=== PATIENT | female | born 1960 | race Caucasian/White ===

== ENCOUNTER 2016-04-22 08:49 | Emergency (ER) | payer BC, OTHER ==
[2016-04-22] MEDS ORDERED: Naproxen TAB* 250 MG PO ONE (09:21)
--- NOTE | 2016-04-22 09:26 | UC ---
Throat Pain/Nasal Dominic HPI - HPI Summary HPI Summary: patient has had sore thraot for 4 days, denies fever, hard to swallow - History of Current Complaint Chief Complaint: UCRespiratory Stated Complaint: THROAT COMPLAINT Time Seen by Provider: 04/22/16 09:23 Hx Obtained From: Patient Hx Last Menstrual Period: one month ?: No Onset/Duration: Sudden Onset, Lasting Days Severity: Severe Pain Intensity: 8 Pain Scale Used: 0-10 Numeric Cough: Nonproductive Associated Signs & Symptoms: Positive: Dysphagia, Hoarseness - Epiglottits Risk Factors Epiglottis Risk Factors: Negative - Allergies/Home Medications Allergies/Adverse Reactions: Allergies Allergy/AdvReac Type Severity Reaction Status Date / Time Amoxicillin [From Augmentin] AdvReac GI Upset Verified 04/22/16 09:19 Clavulanic Acid AdvReac GI Upset Verified 04/22/16 09:19 [From Augmentin] PMH/Surg Hx/FS Hx/Imm Hx Previously Healthy: Yes Endocrine History Of: Reports: Diabetes Cardiovascular History Of: Reports: Hypertension Cancer History Of: Denies: Breast Cancer - Surgical History Surgical History: Yes Surgery Procedure, Year, and Place: x2. uterine ablation - Family History Known Family History: Positive: Cardiac Disease - Social History Alcohol Use: Rare Substance Use Type: None Smoking Status (MU): Never Smoked Tobacco Have You Smoked in the Last Year: No - Immunization History Most Recent Influenza Vaccination: none Most Recent Tetanus Shot: unk Most Recent Pneumonia Vaccination: none Review of Systems Constitutional: Negative Skin: Negative Eyes: Negative ENT: Sore Throat Respiratory: Negative Cardiovascular: Negative Gastrointestinal: Negative Genitourinary: Negative Motor: Negative Neurovascular: Negative Musculoskeletal: Negative Neurological: Negative Psychological: Negative All Other Systems Reviewed And Are Negative: Yes Physical Exam Triage Information Reviewed: Yes Appearance: Well-Appearing, Well-Nourished, Pain Distress Vital Signs: Initial Vital Signs Temp 98.2 F 04/22/16 09:10 Pulse 93 04/22/16 09:10 Resp 18 04/22/16 09:10 BP 161/61 04/22/16 09:10 Vital Signs Reviewed: Yes Eye Exam: Normal Eyes: Positive: Conjunctiva Clear ENT Exam: Normal ENT: Positive: Pharyngeal erythema - large amount of exudate, TMs normal, Muffled/hoarse voice Dental Exam: Normal Neck exam: Normal Neck: Positive: Supple, Nontender, No Lymphadenopathy Respiratory Exam: Normal Respiratory: Positive: Chest non-tender, Lungs clear, Normal breath sounds Cardiovascular Exam: Normal Cardiovascular: Positive: RRR, No Murmur, Pulses Normal Abdominal Exam: Normal Abdomen Description: Positive: Nontender, No Organomegaly, Soft Bowel Sounds: Positive: Present Musculoskeletal Exam: Normal Musculoskeletal: Positive: Strength Intact, ROM Intact, No Edema Neurological Exam: Normal Neurological: Positive: Alert, Muscle Tone Normal Psychological Exam: Normal Skin Exam: Normal Throat Pain/Nasal Course/Dx - Course Course Of Treatment: hx obtained, exam performed, rapid strep obtained, result was invalid, however do to the amount of exudate, and presentation will treat for bacterial infection. - Differential Dx/Diagnosis Differential Diagnosis/HQI/PQRI: Influenza, Laryngitis, Pharyngitis, Sinusitis, URI Provider Diagnoses: bacterial pharyngitis Discharge - Discharge Plan Condition: Stable Disposition: HOME Patient Education Materials: Pharyngitis (ED) Additional Instructions: Take the medication as prescribed. [place] with salt water frequently through out the day. Follow up with worsening symptoms.
[2016-04-22 09:56] VITALS: BP 153/65
== END 2016-04-22 09:56 | disposition home or self-care (01) ==
LOC: UCCORT 08:49
DX: J02.9 Acute pharyngitis, unspecified (principal); Z88.1 Allergy status to other antibiotic agents
CPT/HCPCS: 99212; A9270-GY; G0463

== ENCOUNTER 2017-04-20 07:35 | Emergency (ER) | payer BC ==
[2017-04-20 07:51] VITALS: BP 127/64
--- NOTE | 2017-04-20 08:09 | ED ---
Respiratory - HPI Summary HPI Summary: 56 yr old female with the complaint of runny nose, cough for two days. She has had myalgias as well. She feels like she is wheezing. No SOB. No CP. Denies smoking. - History of Current Complaint Chief Complaint: UCGeneralIllness Stated Complaint: WHEEZY COUGH CONGESTION Time Seen by Provider: 04/20/17 07:51 Pain Intensity: 5 - Allergy/Home Medications Allergies/Adverse Reactions: Allergies Allergy/AdvReac Type Severity Reaction Status Date / Time amoxicillin [From Augmentin] AdvReac GI Upset Verified 04/20/17 07:37 clavulanic acid AdvReac GI Upset Verified 04/20/17 07:37 [From Augmentin] Home Medications: Home Medications Omeprazole CAP* [Prilosec CAP* 20 MG] 20 mg PO DAILY 04/20/17 [History Confirmed 04/20/17] glipiZIDE TAB* [Glucotrol TAB*] 5 mg PO DAILY 04/20/17 [History Confirmed ] PMH/Surg Hx/FS Hx/Imm Hx Endocrine/Hematology History: Reports: Hx Diabetes Cardiovascular History: Reports: Hx Hypertension, Other Cardiovascular Problems/ Disorders - MITRAL VALVE REGURGITATION Psychiatric History: Denies: Hx Eating Disorder, Hx of Violent Episodes Against Others - Cancer History Hx Chemotherapy: No Hx Radiation Therapy: No - Surgical History Surgery Procedure, Year, and Place: x2. uterine ablation - Immunization History Date of Tetanus Vaccine: Unknown Infectious Disease History: No Infectious Disease History: Reports: Hx of Known/Suspected MRSA - BUTTOCK Denies: Traveled Outside the [place] in Last 30 Days - Family History Known Family History: Positive: Cardiac Disease - Social History Alcohol Use: Occasionally Substance Use Type: Reports: None Smoking Status (MU): Never Smoked Tobacco Have You Smoked in the Last Year: No Review of Systems Positive: Fever, Fatigue Positive: Nasal Discharge Positive: Cough Positive: Myalgia All Other Systems Reviewed And Are Negative: Yes Physical Exam Triage Information Reviewed: Yes Vital Signs On Initial Exam: Initial Vitals Temp Pulse Resp BP Pulse Ox 99 F 102 18 127/64 98 04/20/17 07:43 04/20/17 07:43 04/20/17 07:43 04/20/17 07:43 04/20/17 07:43 Vital Signs Reviewed: Yes Appearance: Positive: Well-Appearing, No Pain Distress Skin: Positive: Warm Head/Face: Positive: Normal Head/Face Inspection Eyes: Positive: EOMI ENT: Positive: Pharynx normal, Nasal congestion, TMs normal Neck: Positive: Nontender Respiratory/Lung Sounds: Positive: Clear to Auscultation, Breath Sounds Present Cardiovascular: Positive: RRR. Negative: Murmur Abdomen Description: Positive: Nontender Musculoskeletal: Positive: Strength/ROM Intact Neurological: Positive: Sensory/Motor Intact, Alert, Oriented to Person Place, Time, CN Intact II-III Psychiatric: Positive: Normal - Hudson Coma Scale Best Eye Response: 4 - Spontaneous Best Motor Response: 6 - Obeys Commands Best Verbal Response: 5 - Oriented Coma Scale Total: 15 Diagnostics - Vital Signs Vital Signs Temp Pulse Resp BP Pulse Ox 04/20/17 07:43 99 F 102 18 127/64 98 - Laboratory Lab Statement: Any lab studies that have been ordered have been reviewed, and results considered in the medical decision making process. Disposition - Course Course Of Treatment: 56 yr old with cough, otherwise clear lungs. Influenza A positive.Tamfiflu. Symptomatic management. - Diagnoses Provider Diagnoses: Influenza A Discharge - Discharge Plan Condition: Good Disposition: HOME Prescriptions: Albuterol HFA INHALER* [Ventolin HFA Inhaler*] 1 - 2 puff INH Q4H PRN #1 mdi PRN Reason: Cough Benzonatate CAP* [Tessalon 100 MG CAP*] 100 mg PO TID #10 cap Oseltamivir CAP* [Tamiflu CAP*] 75 mg PO BID #10 cap Patient Education Materials: Influenza (ED) Referrals: Yana Noel MD [Primary Care Provider] - 2 Days
== END 2017-04-20 08:26 | disposition home or self-care (01) ==
LOC: UCCORT 07:35
DX: J10.1 Influenza due to other identified influenza virus with other respiratory manifestations (principal); E11.9 Type 2 diabetes mellitus without complications; Z79.84 Long term (current) use of oral hypoglycemic drugs; I10 Essential (primary) hypertension; I34.0 Nonrheumatic mitral (valve) insufficiency; Z86.14 Personal history of Methicillin resistant Staphylococcus aureus infection; Z88.1 Allergy status to other antibiotic agents
CPT/HCPCS: 87502; 99212; G0463

== ENCOUNTER 2018-04-01 18:52 | Emergency (ER) | payer BC ==
[2018-04-01 19:38] VITALS: BP 145/66
[2018-04-01] MEDS ORDERED: Amoxicillin PO (*) 500 MG CAP PO ONE (20:45)
--- NOTE | 2018-04-01 20:47 | UC ---
Respiratory Complaint HPI - HPI Summary HPI Summary: 57 yo female with 2-3 week hx bilat otalgia/decreased hearing and post nasal drip + sinus pressure and pain no fever/chills - History of Current Complaint Chief Complaint: UCGeneralIllness Stated Complaint: BILATERAL EAR PAIN Time Seen by Provider: 04/01/18 20:40 Hx Obtained From: Patient Hx Last Menstrual Period: one month Onset/Duration: Gradual Onset, Lasting Weeks - 2-3 Timing: Constant Severity Initially: Mild Severity Currently: Moderate Pain Intensity: 5 Pain Scale Used: 0-10 Numeric Character: Cough: Nonproductive Associated Signs And Symptoms: Positive: URI, Nasal Congestion, Sinus Discomfort - Allergies/Home Medications Allergies/Adverse Reactions: Allergies Allergy/AdvReac Type Severity Reaction Status Date / Time amoxicillin [From Augmentin] AdvReac GI Upset Verified 04/01/18 19:30 clavulanic acid AdvReac GI Upset Verified 04/01/18 19:30 [From Augmentin] Home Medications: Home Medications Acetaminophen [Extra Strength Non-Aspirin] 1,000 mg PO Q6H PRN 04/01/18 [ History Confirmed 04/01/18] PMH/Surg Hx/FS Hx/Imm Hx Previously Healthy: Yes Endocrine History: Diabetes Cardiovascular History: Hypertension - Surgical History Surgical History: Yes Surgery Procedure, Year, and Place: x2. uterine ablation - Family History Known Family History: Positive: Cardiac Disease, Diabetes - Social History Alcohol Use: Rare Substance Use Type: None Smoking Status (MU): Never Smoked Tobacco Have You Smoked in the Last Year: No - Immunization History Most Recent Influenza Vaccination: none Most Recent Tetanus Shot: unk Most Recent Pneumonia Vaccination: none Review of Systems All Other Systems Reviewed And Are Negative: Yes Constitutional: Positive: Negative Skin: Positive: Negative Eyes: Positive: Negative ENT: Positive: Sore Throat, Ear Ache, Nasal Discharge, Sinus Congestion, Sinus Pain/Tenderness Respiratory: Positive: Cough Cardiovascular: Positive: Negative Gastrointestinal: Positive: Negative Genitourinary: Positive: Negative Motor: Positive: Negative Neurovascular: Positive: Negative Musculoskeletal: Positive: Negative Neurological: Positive: Negative Psychological: Positive: Negative Physical Exam Triage Information Reviewed: Yes Appearance: Well-Appearing, No Pain Distress, Well-Nourished Vital Signs: Initial Vital Signs Temp 99.1 F 04/01/18 19:34 Pulse 82 04/01/18 19:34 Resp 18 04/01/18 19:34 BP 145/66 04/01/18 19:34 Pulse Ox 98 04/01/18 19:34 Vital Signs Reviewed: Yes Eyes: Positive: Conjunctiva Clear ENT: Positive: Nasal congestion, Nasal drainage, TM bulging, Hoarse voice, Sinus tenderness, Uvula midline. Negative: Hearing grossly normal, TMs normal, Tonsillar swelling, Tonsillar exudate, Trismus, Muffled voice Neck: Positive: Supple, Nontender, No Lymphadenopathy Respiratory: Positive: Lungs clear, Normal breath sounds, No respiratory distress, No accessory muscle use Cardiovascular: Positive: RRR, No Murmur, Pulses Normal Musculoskeletal: Positive: ROM Intact, No Edema Neurological: Positive: Alert, Muscle Tone Normal, Fatigued Psychological Exam: Normal Skin Exam: Normal UC Diagnostic Evaluation - Laboratory O2 Sat by Pulse Oximetry: 98 - normal/not hypoxic Respiratory Course/Dx - Differential Dx/Diagnosis Provider Diagnosis: Sinusitis, acute, Bilateral serous otitis media Discharge - Sign-Out/Discharge Documenting (check all that apply): Patient Departure All imaging exams completed and their final reports reviewed: No Studies - Discharge Plan Condition: Stable Disposition: HOME Prescriptions: Amoxicillin PO (*) [Amoxicillin 875 MG (*)] 875 mg PO BID #20 tab Fluticasone NASAL SPRAY 50MCG* [Flonase NASAL SPRAY 50MCG*] 2 spray BOTH NARES BID #1 btl Patient Education Materials: Sinusitis (ED), Serous Otitis Media (ED) Referrals: Yana Noel MD [Primary Care Provider] - 2 Weeks - Billing Disposition and Condition Condition: STABLE Disposition: Home
== END 2018-04-01 20:53 | disposition home or self-care (01) ==
LOC: UCCORT 18:52
DX: H65.93 Unspecified nonsuppurative otitis media, bilateral (principal); J32.9 Chronic sinusitis, unspecified; E11.9 Type 2 diabetes mellitus without complications; I10 Essential (primary) hypertension; Z88.2 Allergy status to sulfonamides
CPT/HCPCS: 99212; A9270-GY; G0463

== ENCOUNTER 2018-10-22 09:39 | Emergency (ER) | payer BC ==
[2018-10-22 09:57] VITALS: BP 127/70
--- NOTE | 2018-10-22 10:12 | UC ---
Skin Complaint HPI - HPI Summary HPI Summary: Patient presents to urgent care for evaluation of a raised itchy rash on her right leg. Patient states she's been putting topical [id number] products without relief. Patient states her last referral she's noticed a patch on her right arm. Patient denies fevers or chills. Patient has nausea vomiting. No difficulty swallowing or facial swelling. Patient states she is not on the corea and does not think she came in contact with something. Patient without any sick contacts. No others with similar symptoms. Patient's medications reviewed this visit. - History of Current Complaint Chief Complaint: UCSkin Time Seen by Provider: 10/22/18 10:06 Stated Complaint: RT LEG SKIN CONCERN Hx Obtained From: Patient Hx Last Menstrual Period: one month ?: No Onset/Duration: Gradual Onset Skin Exposure Onset/Duration: Days Ago Pain Intensity: 0 - Allergy/Home Medications Allergies/Adverse Reactions: Allergies Allergy/AdvReac Type Severity Reaction Status Date / Time amoxicillin [From Augmentin] AdvReac GI Upset Verified 10/22/18 09:51 clavulanic acid AdvReac GI Upset Verified 10/22/18 09:51 [From Augmentin] Home Medications: Home Medications LORazepam TAB(*) [Ativan 0.5 MG TAB (*)] 0.25 mg PO BEDTIME 10/22/18 [History Confirmed 10/22/18] PMH/Surg Hx/FS Hx/Imm Hx Previously Healthy: Yes Endocrine History: Diabetes - Surgical History Surgical History: Yes Surgery Procedure, Year, and Place: x2. uterine ablation. hysterectomy - Family History Known Family History: Positive: Cardiac Disease, Diabetes, Non-Contributory - Social History Lives: With Family Alcohol Use: Rare Substance Use Type: None Smoking Status (MU): Never Smoked Tobacco Have You Smoked in the Last Year: No - Immunization History Most Recent Influenza Vaccination: none Most Recent Tetanus Shot: unk Most Recent Pneumonia Vaccination: none Review of Systems All Other Systems Reviewed And Are Negative: Yes Skin: Positive: Rash Is Patient Immunocompromised?: No - diabetes, no insulin Physical Exam - Summary Physical Exam Summary: Vital Signs Reviewed: Yes A+Ox3, no distress Eyes: Conjunctiva Clear ENT: Hearing grossly normal neck: supple Respiratory: Positive: No respiratory distress, No accessory muscle use Cardiovascular: skin color reflect adequate perfusion Musculoskeletal Exam: ARREGUIN x 4 without difficulty Neurological: Positive: Alert, ambulatory without difficulty Psychological: Positive: Normal Response To examiner Skin: Positive: pt with patch of raised, dry blister, mild pruritic lesin on right lateral forearm. slight eythematus base. Pt with smaller, new eruption on right forearm Triage Information Reviewed: Yes Vital Signs: Initial Vital Signs Temp 98 F 10/22/18 09:53 Pulse 77 10/22/18 09:53 Resp 16 10/22/18 09:53 BP 127/70 10/22/18 09:53 Pulse Ox 98 10/22/18 09:53 Course/Dx - Course Course Of Treatment: Patient presents to urgent care for progressive rash on her right lateral calf and new development similar rash on her right forearm. Patient states it's mildly itchy. Had some drainage from little blisters that has since dried up on the leg. No discomfort. No other symptoms. On exam vital signs are stable. Patient has lesions concerning for some type of contact dermatitis although it's unclear origin. Recommend patient take prednisone taper. Discussed with patient her blood sugars will rise while on this medication. Recommend [id number] topical Benadryl or oral with sedation precautions. Avoid heat and NSAIDs. Strict return precautions. Patient states understanding agreement with plan. - Diagnoses Provider Diagnosis: Contact dermatitis Discharge ED - Sign-Out/Discharge Documenting (check all that apply): Patient Departure All imaging exams completed and their final reports reviewed: No Studies - Discharge Plan Condition: Stable Disposition: HOME Prescriptions: predniSONE TAB* [Deltasone 20 MG TAB*] 20 mg PO DAILY #13 tab Patient Education Materials: Contact Dermatitis (ED) Referrals: Yana Noel MD [Primary Care Provider] - Additional Instructions: - Take prednisone exactly as prescribed until gone - starting today - Okay to take Benadryl (1-2 tablets) every 6 hours as needed. This medication may cause drowsiness - do NOT drive, operate machinery or drink alcohol while taking Benadryl. Alternatively you can put benadryl cream on your wounds to help with itching, -Avoid getting over heated (hot showers, hot tubs, exercise) for at least 48 hours - Try to avoid aspirin, NSAIDs (Motrin, Aleve, Naprosyn) for 2-3 days - Okay to apply cool compresses to the area of injury -Contact your doctor or return here with questions or concerns - Billing Disposition and Condition Condition: STABLE Disposition: Home
== END 2018-10-22 10:30 | disposition home or self-care (01) ==
LOC: UCCORT 09:39
DX: L25.9 Unspecified contact dermatitis, unspecified cause (principal); E11.9 Type 2 diabetes mellitus without complications
CPT/HCPCS: 99212; G0463

== ENCOUNTER 2018-10-27 14:21 | Emergency (ER) | payer BC ==
[2018-10-27 14:38] VITALS: BP 148/69
--- NOTE | 2018-10-27 14:58 | UC ---
Complaint Female HPI - HPI Summary HPI Summary: 57 yo with the onset of hematuria and dysuria that started today no n/v/d no f/c some mild LBP - History Of Current Complaint Chief Complaint: UCGU Stated Complaint: URINARY Time Seen by Provider: 10/27/18 14:41 Hx Obtained From: Patient Hx Last Menstrual Period: one month Onset/Duration: Sudden Onset, Lasting Hours Timing: Intermittent, Lasting Seconds Severity Initially: Moderate Severity Currently: None Pain Intensity: 0 Pain Scale Used: 0-10 Numeric Character: Burning Aggravating Factor(s): Urination Alleviating Factor(s): Position Associated Signs And Symptoms: Positive: Back Pain - mild lower back. Negative : Fever, Vaginal Bleeding/Discharge, Vaginal Discharge, Nausea, Vomiting(# Of Episodes =), Genital Swelling, Genital Blisters, Retained Foregin Body (Specify) - Allergies/Home Medications Allergies/Adverse Reactions: Allergies Allergy/AdvReac Type Severity Reaction Status Date / Time amoxicillin [From Augmentin] AdvReac GI Upset Verified 10/27/18 14:39 clavulanic acid AdvReac GI Upset Verified 10/27/18 14:39 [From Augmentin] PMH/Surg Hx/FS Hx/Imm Hx Endocrine History: Diabetes Cardiovascular History: Hypertension - Surgical History Surgical History: Yes Surgery Procedure, Year, and Place: x2. uterine ablation. hysterectomy - Family History Known Family History: Positive: Cardiac Disease, Diabetes, Non-Contributory - Social History Alcohol Use: Rare Substance Use Type: None Smoking Status (MU): Never Smoked Tobacco Have You Smoked in the Last Year: No - Immunization History Most Recent Influenza Vaccination: none Most Recent Tetanus Shot: unk Most Recent Pneumonia Vaccination: none Review of Systems All Other Systems Reviewed And Are Negative: Yes Constitutional: Positive: Negative Skin: Positive: Negative Eyes: Positive: Negative ENT: Positive: Negative Respiratory: Positive: Negative Cardiovascular: Positive: Negative, Palpitations Genitourinary: Positive: Dysuria, Hematuria Motor: Positive: Negative Neurovascular: Positive: Negative Musculoskeletal: Positive: Negative Neurological: Positive: Negative Psychological: Positive: Negative Physical Exam Triage Information Reviewed: Yes Appearance: Well-Appearing, No Pain Distress, Well-Nourished Vital Signs: Initial Vital Signs Temp 97.7 F 10/27/18 14:33 Pulse 96 10/27/18 14:33 Resp 17 10/27/18 14:33 BP 148/69 10/27/18 14:33 Pulse Ox 97 10/27/18 14:33 Vital Signs Reviewed: Yes Eyes: Positive: Conjunctiva Clear ENT: Positive: Hearing grossly normal. Negative: Nasal congestion, Nasal drainage, Trismus, Muffled voice, Hoarse voice Neck: Positive: Supple, Nontender Respiratory: Positive: Lungs clear, Normal breath sounds, No respiratory distress Cardiovascular: Positive: RRR. Negative: No Murmur - murmur noted...pt questioned and states she has mitral regurg Abdomen Description: Positive: Soft. Negative: Nontender - mild RUQ tenderness , Bruit, CVA Tenderness (R), CVA Tenderness (L), Distended, Guarding Bowel Sounds: Positive: Present Musculoskeletal: Positive: ROM Intact, No Edema Neurological: Positive: Alert Psychological Exam: Normal Skin Exam: Other - no purpura or petechiae Diagnostics - Laboratory Lab Results: UA +++protein and RBC, + leuks, + nitrite Complaint Female Dx - Differential Dx/Diagnosis Provider Diagnosis: Hemorrhagic cystitis Discharge ED - Sign-Out/Discharge Documenting (check all that apply): Patient Departure All imaging exams completed and their final reports reviewed: No Studies - Discharge Plan Condition: Stable Disposition: HOME Prescriptions: Cephalexin CAP* [Keflex CAP*] 500 mg PO BID #10 cap Patient Education Materials: Hematuria (ED) Referrals: Yana Noel MD [Primary Care Provider] - 1 Week Additional Instructions: I suspect the blood in your urine is due to a UTI A culture is pending If the culture is not + for infection you will need a work up to determine the cause of your hematuria recheck for worsening symptoms/fever - Billing Disposition and Condition Condition: STABLE Disposition: Home
--- NOTE | 2018-10-30 07:30 | UC ---
- Progress Note Progress Note: + urine cx, sensitive to keflex that she is on Course/Dx - Diagnoses Provider Diagnoses: Hemorrhagic cystitis Discharge ED - Sign-Out/Discharge Documenting (check all that apply): Post-Discharge Follow Up All imaging exams completed and their final reports reviewed: No Studies - Discharge Plan Condition: Stable Disposition: HOME Prescriptions: Cephalexin CAP* [Keflex CAP*] 500 mg PO BID #10 cap Patient Education Materials: Hematuria (ED) Referrals: Yana Noel MD [Primary Care Provider] - 1 Week Additional Instructions: I suspect the blood in your urine is due to a UTI A culture is pending If the culture is not + for infection you will need a work up to determine the cause of your hematuria recheck for worsening symptoms/fever - Billing Disposition and Condition Condition: STABLE Disposition: Home
== END 2018-10-27 15:06 | disposition home or self-care (01) ==
LOC: UCCORT 14:21
DX: N30.91 Cystitis, unspecified with hematuria (principal); Z88.0 Allergy status to penicillin; E11.9 Type 2 diabetes mellitus without complications; I10 Essential (primary) hypertension
CPT/HCPCS: 81003; 87077; 87086; 87186; 99212; G0463

== ENCOUNTER 2019-03-04 13:03 | Emergency (ER) | payer BC ==
[2019-03-04 13:49] VITALS: BP 149/69
--- NOTE | 2019-03-04 13:52 | UC ---
Complaint Female HPI - HPI Summary HPI Summary: 58-year-old female who has burning on urination, frequency, urgency and was also incontinent of urine today. She normally this morning however this afternoon she had some blood in her urine. She denies any fever or chills. - History Of Current Complaint Chief Complaint: UCGU Stated Complaint: UTI Time Seen by Provider: 03/04/19 13:46 Hx Obtained From: Patient Hx Last Menstrual Period: one month ?: No Onset/Duration: Gradual Onset Timing: Intermittent Severity Initially: Mild Severity Currently: Mild Pain Intensity: 10 Character: Burning Aggravating Factor(s): Urination Alleviating Factor(s): Nothing Associated Signs And Symptoms: Positive: Negative - Allergies/Home Medications Allergies/Adverse Reactions: Allergies Allergy/AdvReac Type Severity Reaction Status Date / Time amoxicillin [From Augmentin] AdvReac GI Upset Verified 03/04/19 13:41 clavulanic acid AdvReac GI Upset Verified 03/04/19 13:41 [From Augmentin] PMH/Surg Hx/FS Hx/Imm Hx Previously Healthy: Yes Endocrine History: Diabetes Cardiovascular History: Hypertension GI/ History: Gastroesophageal Reflux - Surgical History Surgical History: Yes Surgery Procedure, Year, and Place: x2. uterine ablation. hysterectomy - Family History Known Family History: Positive: Cardiac Disease, Diabetes, Non-Contributory - Social History Alcohol Use: Rare Substance Use Type: None Smoking Status (MU): Never Smoked Tobacco Have You Smoked in the Last Year: No Household Exposure Type: Cigarettes - Immunization History Most Recent Influenza Vaccination: none Most Recent Tetanus Shot: unk Most Recent Pneumonia Vaccination: none Review of Systems All Other Systems Reviewed And Are Negative: Yes Genitourinary: Positive: Dysuria, Hematuria, Frequency, Urgency Is Patient Immunocompromised?: No Physical Exam Triage Information Reviewed: Yes Appearance: Well-Appearing, No Pain Distress, Well-Nourished Vital Signs: Initial Vital Signs Temp 98.2 F 03/04/19 13:43 Pulse 80 03/04/19 13:43 Resp 18 03/04/19 13:43 BP 149/69 03/04/19 13:43 Pulse Ox 98 03/04/19 13:43 Vital Signs Reviewed: Yes Eyes: Positive: Conjunctiva Clear Respiratory: Positive: Lungs clear, Normal breath sounds, No respiratory distress, No accessory muscle use Cardiovascular: Positive: RRR, No Murmur, Pulses Normal, Brisk Capillary Refill Abdomen Description: Positive: Nontender, No Organomegaly, Soft. Negative: CVA Tenderness (R), CVA Tenderness (L), Distended, Guarding, Hepatomegaly, Splenomegaly Bowel Sounds: Positive: Present Musculoskeletal Exam: Normal Neurological Exam: Normal Psychological Exam: Normal Skin Exam: Normal Complaint Female Dx - Course Course Of Treatment: Urinalysis: Positive for leukocytes, nitrites, blood and glucose. The patient is comfortable in the room and nontoxic. I'm going to treat her with cephalexin 500 mg by mouth 3 times a day 10 days and Pyridium for bladder spasms. - Differential Dx/Diagnosis Provider Diagnosis: UTI (urinary tract infection) Discharge ED - Sign-Out/Discharge Documenting (check all that apply): Patient Departure All imaging exams completed and their final reports reviewed: No Studies - Discharge Plan Condition: Fair Disposition: HOME Prescriptions: Cephalexin CAP* [Keflex 500 CAP*] 500 mg PO TID 10 Days #30 cap Phenazopyridine TAB* [Pyridium 100 mg TAB*] 100 mg PO TID PRN #10 tab PRN Reason: Spasms Patient Education Materials: Urinary Tract Infection in Women (DC) Referrals: Yana Noel MD [Primary Care Provider] - Additional Instructions: Increase fluids, the pyridium will turn your urine orange. Recheck with your primary care provider if no improvement in 2 or 3 days. Go to the emergency room if you develop any fever, chills, back pain and vomiting and unable keep the medicine down. - Billing Disposition and Condition Condition: FAIR Disposition: Home
== END 2019-03-04 14:08 | disposition home or self-care (01) ==
LOC: UCCORT 13:03
DX: N39.0 Urinary tract infection, site not specified (principal); R31.9 Hematuria, unspecified; I10 Essential (primary) hypertension; E11.9 Type 2 diabetes mellitus without complications; Z88.0 Allergy status to penicillin
CPT/HCPCS: 81003; 87077; 87086; 87186; 99212; G0463